=== PATIENT | male | born 1970 | race Caucasian/White ===

== ENCOUNTER 2018-07-19 21:07 | Emergency (ER) | payer SELFPAY ==
[~2018-07-19] VITALS: Ht 165.1 cm; Wt 72.7 kg
[2018-07-19 21:19] VITALS: TEMP 97.6
[2018-07-19 21:56] LABS: BASO # 0.1 (0.0-0.2); BASO % 0.6 % (0.0-2.0); EOS # 0.1 (0.0-0.7); EOS % 1.6 % (0-4.0); GRAN # 5.6 (1.4-6.5); GRAN % 66.1 % (42.2-75.2); HEMOGLOBIN 14.6 g/dl (13.5-18.0); LYMPH # 2.2 (1.2-3.4); LYMPH % 25.7 % (20.0-51.0); MEAN CELL VOLUME 90 fl (80.0-100.0); MEAN CORPUSCULAR HEMOGLOBIN 31 pg (27.0-31.0); MEAN CORPUSCULAR HGB CONC 35 g/dl (33.0-37.0); MEAN PLATELET VOLUME 9.5 fl (7.4-10.4); MONO # 0.5 (0.1-0.6); MONO % 5.9 % (1.7-9.3); PLATELET COUNT 198 K/mm3 (130-400); RED BLOOD COUNT 4.66 M/mm3 (4.20-5.60)
[2018-07-19 22:08] LABS: ALANINE AMINOTRANSFERASE 18 U/L (21-72); ALBUMIN 4.1 gm/dL (3.5-5.0); ALKALINE PHOSPHATASE 72 U/L (50-136); ANION GAP 8 mmol/L (7-16); AST,SGOT 26 U/L (15-37); BILIRUBIN,TOTAL 0.3 mg/dL (0.0-1.0); BLOOD UREA NITROGEN 25 mg/dL (9-20); CALCIUM 8.8 mg/dL (8.4-10.2); CARBON DIOXIDE 28 mmol/L (22-30); CHLORIDE 102 mmol/L (98-107); CREATININE, serum 0.82 mg/dL (0.66-1.25); GLUCOSE 116 mg/dL (74-106); LIPASE 120 U/L (23-300); POTASSIUM 3.4 mmol/L (3.4-5.0); SODIUM 137 mmol/L (137-145); TOTAL PROTEIN 7.4 gm/dL (6.4-8.2)
[2018-07-19 22:21] LABS: C-REACTIVE PROTEIN < 0.5 mg/dL (0.0-0.9)
[2018-07-19 23:50] VITALS: BP 127/86; PULSE 74
== END 2018-07-19 23:50 | disposition home or self-care (01) ==
LOC: COL.ER 21:07
PROVIDERS: Emergency Medicine
DX: R11.10 Vomiting, unspecified (principal); R51 Headache
CPT/HCPCS: J1885; J2405; J2550; J3010; J7030